=== PATIENT | female | born 1945 | race Caucasian/White ===

== ENCOUNTER 2021-06-20 11:15 | Emergency (ER) | payer MEDICARE ==
[~2021-06-20] VITALS: Ht 162.6 cm; Wt 94.0 kg
[~2021-06-20 11:15] MED LIST: LEVO75TA PO; OMEP-84 PO; PRAM0.129 PO
[2021-06-20 11:25] VITALS: BP 159/90
== END 2021-06-20 15:28 | disposition left against medical advice (07) ==
LOC: ER 11:16
DX: Z53.21 Procedure and treatment not carried out due to patient leaving prior to being seen by health care provider (principal)

== ENCOUNTER 2021-06-20 15:16 | Emergency (ER) | payer MEDICARE ==
[~2021-06-20] VITALS: Ht 162.6 cm; Wt 94.0 kg
[2021-06-20 15:36] VITALS: BP 158/85
[2021-06-20] MEDS ORDERED: TETanus/Pertussis (Acell)/Diphther VAC/PF (Tdap-Adult) 0.5ml syringe IMVAC ONE (16:00)
== END 2021-06-20 16:50 | disposition home or self-care (01) ==
LOC: ER 15:18
DX: S41.102A Unspecified open wound of left upper arm, initial encounter (principal); Z79.899 Other long term (current) drug therapy; Z88.0 Allergy status to penicillin; W26.8XXA Contact with other sharp object(s), not elsewhere classified, initial encounter; Y93.89 Activity, other specified; Y92.89 Other specified places as the place of occurrence of the external cause; Y99.8 Other external cause status
CPT/HCPCS: 90471; 90715; 99281; 99283

== ENCOUNTER 2022-05-14 07:46 | Day surgery (SDC) | payer MEDICARE ==
[2022-05-09 11:34] LABS: BASOPHILS % (AUTO) 0.8 % (0-1); EOSINOPHILS # (AUTO) 0.2 X10'3 (0-0.9); EOSINOPHILS % (AUTO) 3.3 % (0-6); LYMPHOCYTES % (AUTO) 18.3 % (21-51); MEAN CORPUSCULAR HEMOGLOBIN 29.3 PG (27.0-31.0); MEAN CORPUSCULAR HGB CONC 33.5 g/dL (33.0-36.5); MEAN CORPUSCULAR VOLUME 87.6 FL (78-98); MEAN PLATELET VOLUME 9.6 FL (7.4-10.4); MONOCYTES # (AUTO) 0.8 X10'3 (0-0.9); MONOCYTES % (AUTO) 14.6 % (2-12); NEUTROPHILS # (AUTO) 3.5 X10'3 (1.8-7.7); PRE OP HEMATOCRIT 37.3 % (35.0-45.0); PRE OP HEMOGLOBIN 12.5 g/dL (12.0-16.0); PRE OP PLATELET COUNT 186 X10'3 (140-440); RED BLOOD COUNT 4.26 X10'6 (4.20-5.60); RED CELL DISTRIBUTION WIDTH 14.9 % (11.5-14.5)
[2022-05-09 11:51] LABS: ALBUMIN 3.6 G/DL (3.4-5.0); ALBUMIN/GLOBULIN RATIO 0.9 (1.1-1.5); ALKALINE PHOSPHATASE 83 IU/L (46-116); BLOOD UREA NITROGEN 24 MG/DL (7-18); BUN/CREATININE RATIO 27.6 (6.6-38.0); CALCIUM 9.1 MG/DL (8.5-10.1); CHLORIDE 105 MMOL/L (99-107); CREATININE 0.87 MG/DL (0.40-0.90); PRE OP ALT 27 U/L (30-65); PRE OP ANION GAP 10 (8-16); PRE OP AST 20 U/L (10-37); PRE OP BILIRUB, TOTAL 0.4 MG/DL (0.0-1.0); PRE OP GLUCOSE 123 MG/DL (70-104); PRE OP POTASSIUM 3.9 MMOL/L (3.4-5.1); PRE OP SODIUM 143 MMOL/L (135-145); TOTAL CARBON DIOXIDE 27.6 MMOL/L (24-32); TOTAL PROTEIN 7.4 G/DL (6.4-8.2); eGFR 63 ML/MIN
[~2022-05-14] VITALS: Ht 162.6 cm; Wt 92.8 kg
[~2022-05-14 07:46] MED LIST changes: +ACET-1025 PO; +BUPIVAcaine/PF 2.5mg/ml (0.25%) 10ml vial ONE; +DOCUMENT DATE & TIME OF BETA-BLOCKER PO ONE; +DULO30CA52 PO; +FLUT16SP10 INH; +IBUP-1984 PO; +LOSA50TA64 PO; +METF-900 PO; +METO-395 PO; +OXYB5TAB16 PO; -PRAM0.129 PO; +PRAM0.258 PO; +clindamycin-Cleocin 900mg/D5W 50 ML IV ONE; +famotidine 20mg tablet PO ONE; +ringers solution, lacted 1,000 ML IV SCH
[2022-05-14 07:55] VITALS: BP 163/98
[2022-05-14] MEDS ORDERED: ondansetron/PF 4mg/2ml inj IV PRN (09:10)
[2022-05-14] MEDS ORDERED: hydrALAZINE 20mg/ml inj. IV PRN (09:10)
[2022-05-14] MEDS ORDERED: labetalol 20mg/4ml (5mg/ml) syringe IV PRN (09:10)
[2022-05-14] MEDS ORDERED: ringers solution, lacted 1,000 ML IV SCH (09:10)
[2022-05-14] MEDS ORDERED: morphine 4 MG/ML inj SYRINge IV PRN (09:10)
[2022-05-14] MEDS ORDERED: fentaNYL/PF 50MCG/1 ML 2ML syringe IV PRN ×2 (09:10)
[2022-05-14] MEDS ORDERED: morphine 2 MG/ML inj. syringe IV PRN (09:10)
[2022-05-14] MEDS ORDERED: fentaNYL/PF 50MCG/1 ML 2ML syringe ONE (10:55)
[2022-05-14] MEDS ORDERED: midazolam 1 mg/ML 2ml injection ONE (10:56)
[2022-05-14] MEDS ORDERED: LIDOcaine 0.5% (5mg/ml) 50ml vial ONE (11:05)
[2022-05-14 11:20] VITALS: BP 134/92
--- NOTE | 2022-05-14 11:20 | NUR ---
PT ARRIVED VIA GURNEY TO RR, ACCOMPANIED BY DR RIVAS, ANESTHESIA REPORT GIVEN, VSS, DENIES PAIN, LEFT HAND DRSG-CDI, ICE IN PLACE-ELEVATED, FINGERS PINK. WARM, PIV 20G TO RIGHT HAND
[2022-05-14 11:30] VITALS: BP 121/74
[2022-05-14 11:40] VITALS: BP 137/79
[2022-05-14 11:50] VITALS: BP 138/81
[2022-05-14 12:00] VITALS: BP 135/79
--- NOTE | 2022-05-14 12:10 | NUR ---
PT AWAKE, UP AND GETTING DRESSED, DENIES PAIN, VSS, DRSG-CDI, FINGERS PINK AND WARM, PIV D/CD-CANULA INTACT, D/C INSTRUCTIONS GIVEN TO PT-ALL QUESTIONS ANSWERED, PT TAKEN VIA W/C WITH ALL BELONGINGS TO VEHICLE FOR TRANSPORT HOME
== END 2022-05-14 12:10 | disposition home or self-care (01) ==
LOC: PAS 07:46
PROVIDERS: ATTEND Orthopaedic Surgery Hand Surgery
DX: G56.02 Carpal tunnel syndrome, left upper limb (principal); G47.30 Sleep apnea, unspecified; I10 Essential (primary) hypertension; E11.9 Type 2 diabetes mellitus without complications; G89.29 Other chronic pain; M19.90 Unspecified osteoarthritis, unspecified site; E66.9 Obesity, unspecified; Z68.32 Body mass index [BMI] 32.0-32.9, adult; Z88.0 Allergy status to penicillin; Z88.2 Allergy status to sulfonamides; Z79.899 Other long term (current) drug therapy; Z98.890 Other specified postprocedural states; Z72.89 Other problems related to lifestyle; Z96.611 Presence of right artificial shoulder joint; Z96.612 Presence of left artificial shoulder joint; Z96.653 Presence of artificial knee joint, bilateral; Z80.9 Family history of malignant neoplasm, unspecified
CPT/HCPCS: 36415; 64721; 80053; 82948; 85025; 93005; J2250; J3010; J3490; J7030; J7120; Z7506; Z7512; A4215

== ENCOUNTER 2023-01-07 08:06 | Day surgery (SDC) | payer MEDICARE ==
[2023-01-07] VITALS (9 sets, daily range): BP systolic 127–160; BP diastolic 68–89
[~2023-01-07] VITALS: Ht 157.5 cm; Wt 96.8 kg
[~2023-01-07 08:06] MED LIST changes: -BUPIVAcaine/PF 2.5mg/ml (0.25%) 10ml vial ONE; -DOCUMENT DATE & TIME OF BETA-BLOCKER PO ONE; -clindamycin-Cleocin 900mg/D5W 50 ML IV ONE; -famotidine 20mg tablet PO ONE; -ringers solution, lacted 1,000 ML IV SCH
[2023-01-07] MEDS ORDERED: normal saline 1,000 ML IV SCH (08:25)
[2023-01-07] MEDS ORDERED: diphenhydrAMINE 25mg capsule PO PRN (08:25)
[2023-01-07 09:03] LABS: BASOPHILS % (AUTO) 0.7 % (0-1); EOSINOPHILS # (AUTO) 0.2 X10'3 (0-0.9); EOSINOPHILS % (AUTO) 2.8 % (0-6); HEMATOCRIT 38.1 % (35.0-45.0); HEMOGLOBIN 12.6 g/dl (12.0-16.0); LYMPHOCYTES # (AUTO) 0.9 X10'3 (1.1-4.8); LYMPHOCYTES % (AUTO) 16.6 % (21-51); MEAN CORPUSCULAR HEMOGLOBIN 29.8 PG (27.0-31.0); MEAN CORPUSCULAR HGB CONC 33.1 g/dL (33.0-36.5); MEAN CORPUSCULAR VOLUME 89.9 FL (78-98); MEAN PLATELET VOLUME 9.2 FL (7.4-10.4); MONOCYTES # (AUTO) 0.8 X10'3 (0-0.9); MONOCYTES % (AUTO) 14.6 % (2-12); NEUTROPHILS # (AUTO) 3.5 X10'3 (1.8-7.7); NEUTROPHILS % (AUTO) 65.3 % (42-75); PLATELET COUNT 155 X10'3 (140-440); RED BLOOD COUNT 4.24 X10'6 (4.20-5.60); RED CELL DISTRIBUTION WIDTH 14.3 % (11.5-14.5); WHITE BLOOD COUNT 5.4 X10'3 (4.5-11.0)
[2023-01-07 09:13] LABS: ALBUMIN 3.6 G/DL (3.4-5.0); ANION GAP 8 (8-16); BLOOD UREA NITROGEN 23 MG/DL (7-18); CALCIUM 9.2 MG/DL (8.5-10.1); CHLORIDE 104 MMOL/L (99-107); CREATININE 0.82 MG/DL (0.40-0.90); GLUCOSE 138 MG/DL (70-104); MAGNESIUM 1.9 MG/DL (1.5-2.4); POTASSIUM 4.1 MMOL/L (3.5-5.1); SODIUM 140 MMOL/L (135-145); TOTAL CARBON DIOXIDE 28.3 MMOL/L (24-32); eGFR 68 ML/MIN
[2023-01-07] MEDS ORDERED: TRAM50TA2 PO (09:21)
[2023-01-07] MEDS ORDERED: iohexol 350 MG/ML 50ML vial IV ONE (11:56)
[2023-01-07] MEDS ORDERED: LIDOcaine 1% 30ml preserv. free vial ONE (11:56)
[2023-01-07] MEDS ORDERED: iohexol 350MG/ML 100ml bottle IV ONE (11:56)
[2023-01-07] MEDS ORDERED: midazolam 1 mg/ML 2ml injection ONE ×2 (11:56→12:36)
[2023-01-07] MEDS ORDERED: heparin 1,000unit/ml 10ml vial 10 ML ONE (11:56)
[2023-01-07] MEDS ORDERED: fentaNYL/PF 50MCG/1 ML 2ML syringe ONE (11:56)
[2023-01-07] MEDS ORDERED: LIDOcaine 1% (10mg/ml) 2ml vial ONE (12:01)
[2023-01-07] MEDS ORDERED: verapamil 2.5 mg/ml inj IV ONE (12:01)
[2023-01-07] MEDS ORDERED: nitroGLYCERIN-Tridil 50MG/D5W 250 ML IV ONE (12:01)
[2023-01-07] MEDS ORDERED: proCHLORperazine 10 MG/2 ml inj ONE (12:07)
[2023-01-07] MEDS ORDERED: ondansetron/PF 4mg/2ml inj IV PRN (13:45)
[2023-01-07] MEDS ORDERED: HYDROcodone/acetaminophen 10/325mg tab PO PRN (13:50)
[2023-01-07] MEDS ORDERED: proCHLORperazine 10 MG/2 ml inj IV PRN (13:50)
[2023-01-07] MEDS ORDERED: HYDROcodone/acetaminophen 5mg/325mg tablet PO PRN (13:50)
== END 2023-01-07 16:25 | disposition home or self-care (01) ==
LOC: SSTAY O 08:06
PROVIDERS: ATTEND Internal Medicine Cardiovascular Disease
DX: I25.10 Atherosclerotic heart disease of native coronary artery without angina pectoris (principal); E78.5 Hyperlipidemia, unspecified; I10 Essential (primary) hypertension; E11.9 Type 2 diabetes mellitus without complications; G47.30 Sleep apnea, unspecified; I44.7 Left bundle-branch block, unspecified; E66.9 Obesity, unspecified; Z68.39 Body mass index [BMI] 39.0-39.9, adult; Z79.899 Other long term (current) drug therapy; Z79.84 Long term (current) use of oral hypoglycemic drugs; Z96.653 Presence of artificial knee joint, bilateral; Z85.828 Personal history of other malignant neoplasm of skin
CPT/HCPCS: 36415; 80048; 82948; 83735; 85025; 85610; 93005; 93458; 99152; 99153; C1769; C1894; J1644; J2250; J3010; J3490; J7030; Q0163; Q9967; J0780

== ENCOUNTER 2025-10-31 05:20 | Emergency (ER) | payer MEDICARE ==
[~2025-10-31] VITALS: Ht 162.6 cm; Wt 80.0 kg
[~2025-10-31 05:20] MED LIST changes: -IBUP-1984 PO; -OXYB5TAB16 PO; +OXYB5TAB21 PO; +TRAM50TA2 PO
[2025-10-31 05:23] VITALS: TEMP 98
[2025-10-31] MEDS ORDERED: CLIN-214 PO (06:27)
[2025-10-31] MEDS ORDERED: HYDR-3965 PO (06:27)
--- NOTE | 2025-10-31 06:28 | Physician Documentation ---
HPI ~ General Chief Complaint: Tooth Problem Stated Complaint: TOOTH ACHE Time Seen by MD: 06:21 History of Present Illness HPI Comment The patient is an 80-year-old female with no significant past medical history who has a toothache of two days' duration. She has no prior history of problems with that tooth (right upper 3rd molar). Her dentist will be available on Saturday, in two days. She has been taking acetaminophen and ibuprofen for the pain (last dose of ibuprofen was yesterday evening. Medication Reconciliation Allergies: Coded Allergies: penicillin V (Verified Allergy, Unknown, BUMPS, 06/20/21) Scheduled Duloxetine HCl (Duloxetine HCl), 2 CAP PO DAILY, (Reported) Fluticasone Propionate (Flonase), 2 SPR INH DAILY, (Reported) Levothyroxine Sodium* (Synthroid*), 1 TAB PO HS, (Reported) Losartan Potassium (Losartan Potassium), 2 TAB PO HS, (Reported) Metformin Hcl* (Metformin ER*), 1 TAB PO DAILY, (Reported) Metoprolol Succinate (Metoprolol Succinate), 1 TAB PO HS, (Reported) Omeprazole* (Prilosec*), 1 CAP PO DAILY, (Reported) Oxybutynin Chloride (Oxybutynin Chloride), 1 TAB PO HS, (Reported) Pramipexole Di-Hcl (Pramipexole Dihydrochloride), 1-2 TAB PO HS, (Reported) Tramadol Hcl (Tramadol Hcl), 1 TAB PO Q6H, (Reported) Scheduled PRN Acetaminophen (Tylenol Extra Strength), 0.5 TAB PO TID PRN PRN for pain or fever, (Reported) Review of Systems ROS A 10 system review is negative except as noted in the HPI. Physical Exam Vital Signs: Temperature: 98.0, Heart Rate: 108, Respiratory Rate: 16, BP: 118/80, Pulse Oximetry: 97, Weight: 80.000 Oxygen Flow Rate: 0 Physical Exam Examination of the oral cavity reveals several fillings, including the right upper molars but no swelling or discharge or erythema. Progress Results/Orders Results/Orders Vital Signs 10/31/25 05:23 Temp 98.0 Pulse 108 Resp 16 B/P (MAP) 118/80 Pulse Ox 97 O2 Flow Rate 0 Medical Decision Making Additional information obtaine: N/A Findings This 80-year-old female presents with nontraumatic toothache of two days' duration. I am going to start her on clindamycin (penicillin allergy) and prescribe some [place]. I am giving her Toradol and her 1st dose of clindamycin here. Differential Dx:Considerations: Include: Alveolar fracture, Periapical abscess, Peridontal abscess, Tooth Fracture; Unlikely: Alveolar osteitis, ANUG, Facial Cellulitis, Post-extraction bleeding, Pulpitis, Tooth avulsion, Tooth eruption, Trigeminal neuralgia, Tooth subluxation, Other Departure Disposition: 01 HOME / SELF CARE / HOMELESS Impression: Primary Impression: Toothache Condition: Stable Additional Instructions: You have been evaluated for a toothache. I have prescribed an antibiotic and pain medication. Please be sure not to drive or engage in other dangerous activities while taking the pain medication which may make you drowsy. Please be sure to see your dentist [facility]. In the meantime, return for worsening symptoms or new/unusual symptoms. Referrals: NO PRIMARY CARE PROVIDER (PCP) Prescriptions Hydrocodone Bit/Acetaminophen 5/325 MG ([place] 5/325 MG) 5 Mg/325 Mg Tablet 1-2 TAB PO Q4-6 hours PRN for pain, #16 TAB Prov: AWA FRAZIER MD 10/31/25 Clindamycin HCl (Clindamycin HCl CAPSULE) 150 Mg Capsule 2 CAP PO TID, #60 CAP Prov: AWA FRAZIER MD 10/31/25 Education Educated: Patient Educated regarding: diagnosis, treatment, prognosis, need for follow up Signature Scribe Signature: . Attestation: . AWA FRAZIER MD Oct 31, 2025 06:28
[2025-10-31] MEDS: ketorolac trometh 15mg/ml vial 15 MG/ML ML IM ONE (06:39)
[2025-10-31 06:47] VITALS: BP 102/69; PULSE 100; RESP 20; O2SAT 96
== END 2025-10-31 06:49 | disposition home or self-care (01) ==
LOC: ER 05:21
DX: K08.89 Other specified disorders of teeth and supporting structures (principal); Z88.0 Allergy status to penicillin; Z79.899 Other long term (current) drug therapy; Z79.84 Long term (current) use of oral hypoglycemic drugs
CPT/HCPCS: 96372; 99283; J1885